=== PATIENT | male | born 1955 | race Caucasian/White ===

== ENCOUNTER 2018-02-09 11:18 | Inpatient (IN) | payer OTHER ==
[~2018-02-09] VITALS: Ht 170.2 cm; Wt 78.5 kg
[~2018-02-09 11:18] MED LIST: ALBUTEROL 3 ML3 ML INH; ALBUTEROL SULFAT3 M1 INH; ALPRAZOLAM0.5 MG PO; DELTASONE20 MG PO; DUONEB 3 MG/3 ML3 ML INH/SOL; GUAIFENESIN-COD10 ML PO; GUAIFENESIN600 MG PO; IPRAT-ALBUT 0.5-3 ML INH; LORATADINE10 M1 PO; MUCINEX DM ER1 EAC1 PO; PREDNISONE 10MG10 M1 PO; PREDNISONE10 M2 PO; PREDNISONE10 MG PO; PREDNISONE5 M1 PO; PROAIR HFA0.09 MG/Ac INH; ROBITUSSIN W/CO10 ML PO; SINGULAIR10 M1 PO; SINGULAIR10 MG PO; SYMBICORT 160/41 PUF INH; TESSALON PERLE100 M1 PO; ZITHROMAX Z-PA250 M1 PO; ZITHROMAX250 M2 PO
[2018-02-09 13:01] LABS: ABSOLUTE BASOPHIL COUNT 0 /CUMM (0.0-0.2); ABSOLUTE EOSINOPHIL COUNT 0.4 /CUMM (0.0-0.7); ABSOLUTE GRANULOCYTE CT 12.3 /CUMM (1.4-6.5); ABSOLUTE LYMPH COUNT 2.2 /CUMM (1.2-3.4); ABSOLUTE MONOCYTE COUNT 1.3 /CUMM (0.10-0.60); BASOPHIL % 0.2 % (0.0-2.0); EOSINOPHIL % 2.4 % (0-5); GRANULOCYTE % 75.5 % (42.2-75.2); HEMATOCRIT 46.3 % (42-52); MEAN CORPUSCULAR HGB 30.9 PG (27.0-31.0); MEAN CORPUSCULAR HGB CONC 34.2 G/DL (33.0-37.0); MEAN CORPUSCULAR VOLUME 90.3 FL (80.0-94.0); MEAN PLATELET VOLUME 7.7 FL (7.4-10.4); PLATELET COUNT 293 /CUMM (130-400); RBC DISTRIBUTION WIDTH 13.2 % (11.5-14.5); RED BLOOD CELL CT 5.13 /CUMM (4.70-6.10); WHITE BLOOD CELL COUNT 16.3 /CUMM (4.8-10.8)
--- NOTE | 2018-02-09 16:22 | ED GENERAL ADULT ---
History of Present Illness General Chief Complaint: General Adult Stated Complaint: "I HAVE A SEVERE RECTAL PROBLEM" Source: patient, family Exam Limitations: no limitations Vital Signs & Intake/Output Vital Signs & Intake/Output Vital Signs Date Time Temp Pulse Resp B/P B/P Pulse O2 O2 Flow FiO2 Mean Ox Delivery Rate 02/09 2121 98.0 02/10 1928 98.1 88 20 104/58 93 Room Air 02/09 1649 93 02/09 1620 101.6 02/09 1537 97 Room Air Room Air 02/09 1408 101.6 105 18 118/73 95 Room Air 02/09 1134 99.9 112 20 116/81 95 Room Air Allergies Coded Allergies: Sulfa (Sulfonamide Antibiotics) (HIVES 02/09/18) amoxicillin (HIVES 02/09/18) clavulanic acid (HIVES 02/09/18) Reconcile Medications Albuterol Sulfate (Proair Hfa) 0.09 MG/Actuation CAROL 2 PUFF INH Q6 ASTHMA ( Reported) Albuterol Sulfate/Ipratropiu (Duoneb) 3 MG/3 ML NEB 1 Vial INH/GINA 4 TIMES/DAY PRN shortness of breath Alprazolam 0.5 MG TAB 1 TAB PO BID PRN DEPRESSION/ANXIETY (Reported) Azithromycin (Zithromax) 250 MG TABLET 1 DP PO AD COPD/BRONCHITIS 2 the first day followed by 1 for days 2-5 Benzonatate (Tessalon Perle) 100 MG CAPSULE 1 CAP PO TID PRN COUGH Budesonide/Formoterol Fumara (Symbicort 160-4.5 Mcg Inhaler) 160 MCG/4.5 MCG PUF 2 PUF INH BID ASTHMA Guaifenesin/Dextromethorphan (Mucinex Dm ER 600-30 MG Tablet) 1 EACH TAB.ER.12H 1 TAB PO BIDP PRN BREATHING PROBLEMS (Reported) Ipratropium/Albuterol Sulfate (Iprat-Albut 0.5-3(2.5) MG/3 Ml) 0.5 MG-3 MG (2.5 MG BASE)/3 ML AMPUL.NEB 3 ML INH Q6HR PRN WHEEZING Ipratropium/Albuterol Sulfate (Iprat-Albut 0.5-3(2.5) MG/3 Ml) 3 ML AMPUL.NEB 1 VIAL INH Q4-6 PRN WHEEZING Loratadine 10 MG TABLET 1 MG PO DAILY PRN ALLERGIES Montelukast Sodium (Singulair) 10 MG TABLET 1 TAB PO AT BEDTIME shortness of breath Prednisone (Deltasone) 20 MG TABLET 3 TAB PO DAILY ASTHMA Prednisone 10 MG TABLET 0 PO DAILY ASTHMA 6 TABS PO DAY 1 5 TABS PO DAY2 4 TABS PO DAY 3 3 TABS PO DAY 4 2 TABS PO DAY 5 1 TAB PO DAY 6 AND 7 Prednisone 10 MG TABLET 1 TAB PO AD ASTHMA DAY1/DAY2 FOUR TABS DAY3/DAY4 THREE TABS DAY5/DAY6 TWO TABS DAY 7 ONE TAB Robitussin AC (Guaifenesin-Codeine Syrup) 200 MG-20 MG/10 ML LIQUID 10 ML PO Q6HR PRN COUGH Robitussin AC (Guaifenesin-Codeine Syrup) 10 ML LIQUID 10 ML PO TID PRN COUGH Triage Note: PT TO ER C/C PAIN X 10 DAYS. STARTED IN LOW ABD AREA. PAIN IS NOW ALSO TO RECTAL AREA, INO KIDNEY AREA, LOW BACK AND INO HIP AREA. PAIN IS CONSTANT SINCE ONSET. HX OF UMBILICAL HERNIA WHICH HAS NOT BEEN REPAIRED. LAST BM YESTERDAY, STATES HAD TO USE A SUPPOSITORY AND VERY LITTLE CAME OUT. LNBM LAST WEEK. STATES HAS DIFFICULTY URINATING AND HAS TO STIMULATE HIS RECTAL AREA IN ORDER TO GET URINE OUT. LAST NORMAL URINARY VOID LAST WEEK (FRIDAY OR FRIDAY). Triage Nurses Notes Reviewed? yes Onset: Abrupt Duration: day(s): (10), constant, continues in ED, getting worse Timing: single episode today Injury Environment: home Severity: moderate, severe Severity Numbers: 10 No Modifying Factors: none Modifying Factors: Worsens With: movement, other (BM). HPI: 62-year-old male history of anxiety depression bronchitis presents for evaluation of perianal and perirectal pain. Patient reports he has had this pain for the past 10 days is getting worse. The pain is located in the area of the rectum. The pain is worse with bowel movements. He states he has an area of swelling that he can feel Right outside of his anal area. He also reports that he has not been having normal bowel movements recently and feels like he is constipated. He states he did have a small bowel movement yesterday. No diarrhea. He also reports his asthma symptoms have been worse than usual with wheezing and coughing. He has had fever at home. He is not taking any pain medicine. Denies trauma to the area. Additionally he reports because of that she's been having difficulty urinating. He was able to urinate only a small amount earlier today. (Eriberto Chavarria) Past History Travel History Traveled to [place] past 21 day No Medical History Any Pertinent Medical History? 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 No (Eriberto Chavarria) Review of Systems Review of Systems Constitutional: Reports: no symptoms. EENTM: Reports: no symptoms. Respiratory: Reports: no symptoms. Cardiovascular: Reports: no symptoms. GI: Reports: see HPI, abdominal pain, constipation. Genitourinary: Reports: no symptoms. Musculoskeletal: Reports: no symptoms. Skin: Reports: no symptoms. Neurological/Psychological: Reports: no symptoms. Hematologic/Endocrine: Reports: no symptoms. Immunologic/Allergic: Reports: no symptoms. All Other Systems: Reviewed and Negative (Eriberto Chavarria) Physical Exam Physical Exam General Appearance: well developed/nourished, no apparent distress, alert, awake Head: atraumatic, normal appearance Eyes: Bilateral: normal appearance, PERRL, EOMI. Ears, Nose, Throat: hearing grossly normal Neck: normal inspection, supple, full range of motion Respiratory: chest non-tender, no respiratory distress, rhonchi, wheezing Cardiovascular: regular rate/rhythm, normal peripheral pulses Peripheral Pulses: 2+ radial (R), 2+ radial (L) Gastrointestinal: soft, non-tender Rectal: normal rectal tone, heme negative stool, THERE IS AN AREA OF INDURATION ABOUT 4CM IN DIAMETER LOCATED JUST TO THE LEFT OF THE ANAL CANAL.. iNDURATION TRACKS UPWARDS TO HIS SACRUM. tHIS AREA IS MILDLY ERYTHEMATOUS. nO DISCHARGE. aREA IS EXQUISITELY TENDER. nO FOCAL FLUCTUANT AREA PALPATED Back: normal inspection, normal range of motion, no vertebral tenderness Extremities: normal inspection, normal range of motion, no edema Neurologic/Psych: no motor/sensory deficits, awake, alert, oriented x 3, normal gait, normal mood/affect Skin: intact, normal color, warm/dry Lymphatic: no anterior cervical alberto Core Measures ACS in differential dx? No CVA/TIA Diagnosis: No Sepsis Present: Yes Sepsis Focused Exam Completed? Yes (Eriberto Chavarria) ED Sepsis Exam Date of Focused Sepsis Exam: 02/09/18 Time of Focused Sepsis Exam: 2043 Sepsis Cardiac Exam: Tachycardia Sepsis Resp Exam: [place] Sepsis Cap Refill Exam: <2 Sec Sepsis Peripheral Pulse Exam: Normal Sepsis Peripheral Pulse Location: Radial Sepsis Skin Color Exam: Normal for Ethnicity Skin Temp/Moisture Exam: Hot/Dry (Eriberto Chavarria) Progress Differential Diagnoses I considered the following diagnoses in my evaluation of the patient: [Perianal abscess, perirectal abscess, fistula, sepsis, pneumonia, bronchitis] Plan of Care: Orders Procedure Date/time Status CBC WITHOUT DIFFERENTIAL 02/11 0600 Active Nothing by Mouth 02/10 B Active Regular Diet 02/09 D Complete TRC EVALUATION (GEN) 02/10 2140 Active Pathway - chart 02/10 2140 Active Code Status 02/09 214 Active Patient Data 02/09 211 Active TRUNK AREA CULTURE 02/09 2103 Active ED Holding Orders 02/09 2058 Active Admit to inpatient 02/09 2058 Active Vital Signs 02/09 2058 Active Code Status 02/09 205 Complete LACTIC ACID 02/09 1956 Complete Add-on Test (ER Only) 02/09 1644 Active CULTURE,URINE 02/09 1607 Active BLOOD CULTURE 02/09 1605 Active URINALYSIS 02/09 1227 Complete TROPONIN LEVEL 02/09 1227 Complete COMPREHENSIVE METABOLIC PANEL 02/09 1227 Complete CBC WITHOUT DIFFERENTIAL 02/09 1227 Complete EKG 02/09 1142 Active VTE Mechanical Prophylaxis 02/09 UNK Active Vital Signs 02/09 UNK Active Intake & Output 02/09 UNK Active Activity/Ambulation 02/09 UNK Active Current Medications Sig/Roni Start time Last Medication Dose Stop Time Status Admin Docusate Sodium 100 MG BID 02/10 0900 AC (Colace) Vancomycin HCl 1,000 MG DAILY 02/10 0900 AC Sodium Chloride 250 ML (Normal Saline 0.9%) Ceftazidime 1,000 MG IQ8 02/10 0000 AC (Fortaz) Morphine Sulfate 2 MG Q4P PRN 02/09 2200 AC (MORPHINE SULFATE) Oxycodone/ 2 TAB Q4P PRN 02/09 2200 AC Acetaminophen (Percocet) Oxycodone/ 1 TAB Q4P PRN 02/09 2200 AC Acetaminophen (Percocet) Acetaminophen 650 MG Q6PRN PRN 02/09 2130 AC (Tylenol) Albuterol Sulfate 2 PUF Q4 PRN 02/09 213 AC (Ventolin) Dextrose/Sodium 1,000 ML .Q8H 02/09 213 AC 02/09 Chloride 2236 (D5-Normal Saline) Ondansetron HCl 4 MG Q6-PRN PRN 02/09 2130 AC (Zofran) Ipratropium [place] 2.5 ML ONCE ONE 02/09 1615 CAN (Atrovent) 02/09 161 Prednisone 60 MG ONCE ONE 02/09 1615 CAN 02/09 1616 Laboratory Tests 02/09/18 1807: Lactic Acid 0.6 L 02/09/18 1656: Lactic Acid Cancelled 02/09/18 1600: Urine Color YEL, Urine Clarity CLEAR, Urine pH 6.0, Ur Specific [place] 1.020, Urine Protein NEG, Urine Ketones TRACE H, Urine Nitrite NEG, Urine Bilirubin NEG, Urine Urobilinogen 0.2, Ur Leukocyte Esterase NEG, Ur Microscopic EXAM NOT REQUIRED, Urine Hemoglobin NEG, Urine Glucose NEG 02/09/18 1252: Anion Gap 9, Estimated GFR > 60, BUN/Creatinine Ratio 13.3, Glucose 87, Calcium 9.3, Total Bilirubin 1.4 H, AST 21, ALT 30, Alkaline Phosphatase 65, Troponin I < 0.01, Total Protein 7.3, Albumin 4.5, Globulin 2.8, Albumin/Globulin Ratio 1.6 , CBC w Diff MAN DIFF ORDERED, RBC 5.13, MCV 90.3, MCH 30.9, MCHC 34.2, RDW 13.2 , MPV 7.7, Gran % 75.5 H, Lymphocytes % 13.7 L, Monocytes % 8.2, Eosinophils % 2.4, Basophils % 0.2, Absolute Granulocytes 12.3 H, Absolute Lymphocytes 2.2, Absolute Monocytes 1.3 H, Absolute Eosinophils 0.4, Absolute Basophils 0, Platelet Estimate ADEQUATE, Normocytic RBCs VERIFIED, Normochromic RBCs VERIFIED Microbiology 02/09 2100 TRUNK: Culture & Sensitivity - RECD 02/09 2100 TRUNK: Gram Stain - RECD 02/09 1750 BLOOD: Blood Culture - RECD 02/09 1607 URINE ROUT: Urine Culture - ORD 02/09 1605 BLOOD: Blood Culture - RECD Patient is here for evaluation of rectal pain. On exam he does have what appears to be a perianal or perirectal abscess. A CT scan will be obtained for further evaluation. Patient has a temp of 101 here and is tachycardic. He also has wheezing on exam. DuoNeb Solu-Medrol was ordered. Patient was given IV Tylenol fluids and Toradol. Blood work shows a white blood cell count of 16,000. Patient has had a persistent fever of [address] scan shows a 1 x 2 x 5 cm perirectal/perianal abscess. Patient HAS met sepsis criteria. Vancomycin and Fortaz was ordered along with blood cultures. Spoke with Dr. Hong from general surgery will have the surgical PA come down and evaluate the patient. Patient be admitted by surgery. He'll require IV antibiotics serial labs antibiotics IV fluids Diagnostic Imaging: Viewed by Me: Radiology Read. Discussed w/RAD: Radiology Read. Radiology Impression: PATIENT: NENA CONWAY PRESENT AGE: 62 PATIENT ACCOUNT NO: [id number] : 56 LOCATION: [facility] ORDERING PHYSICIAN: Eriberto HSIEH SERVICE DATE: 02/09/18 EXAM TYPE: RAD - XRY- PORTABLE CHEST XRAY EXAMINATION: XR PORTABLE CHEST CLINICAL INFORMATION: Cough. Shortness of breath, fever. Presumptive diagnosis of pneumonia, CHF. COMPARISON: No prior chest x-rays, most recent of which is dated 07/15/2017. TECHNIQUE: Portable AP semierect view of the chest was obtained. FINDINGS: The cardiomediastinal silhouette is within normal limits in size. Lungs bilaterally are symmetrically expanded. Minimal chronic linear atelectasis is seen in the left lung base. No focal consolidation, effusion, pulmonary edema or pneumothorax is seen. Nonfusion of the posterior elements in the lower cervical spine is seen. Minimal convex right thoracolumbar scoliosis is seen. Bony structures are otherwise unremarkable. IMPRESSION: Minimal chronic linear atelectasis in the left lung base. No focal pneumonia. No evidence of pulmonary edema. DICTATED BY: Shaista Castillo MD DATE/TIME DICTATED:02/09/181639 ACCOUNTS RECEIVABLE EXECUTIVE:NATALIE DATE/TIME TRANSCRIBED:02/09/181639 CONFIDENTIAL, DO NOT COPY WITHOUT APPROPRIATE AUTHORIZATION. <Electronically signed in Other Vendor System> Initial ED EKG: normal sinus rhythm, RBBB (Eriberto Chavarria) Departure Departure Disposition: STILL A PATIENT Condition: Stable Clinical Impression Primary Impression: Perirectal abscess Secondary Impressions: Sepsis Qualifiers: Sepsis type: sepsis due to unspecified organism Qualified Code: A41.9 - Sepsis, unspecified organism Referrals: Natalya RUDD,Migel Xiao (PCP/Family) Departure Forms: Customer Survey General Discharge Information Admission Note Spoke With: Davion Hong DO Documentation of Exam: Documentation of any treatments & extenuating circumstances including Concerns Regarding Discharge (functional status, medication knowledge or non-compliance, living conditions, etc.) that warrant an admission rather than observation: [ Serial labs IV pain meds IV fluids IV antibiotics surgical consult monitoring of signs] (Eriberto Chavarria) PA/PHOTOGRAPH DEVELOPER Co-Sign Statement Statement: ED Attending supervision documentation- [X] I saw and evaluated the patient. I have also reviewed all the pertinent lab results and diagnostic results. I agree with the findings and the plan of care as documented in the PA's/PHOTOGRAPH DEVELOPER's documentation. [X] I have reviewed the ED Record and agree with the PA's/PHOTOGRAPH DEVELOPER's documentation. [] Additions or exceptions (if any) to the PAs/PHOTOGRAPH DEVELOPER's note and plan are summarized below: [Patient. Admitted for perirectal abscess status post I&D. Patient will need IV fluids, IV antibiotics] (Spenser RUDD,Mk Xiao) Critical Care Note Critical Care Note Critical Care Time: 30-74 min (Eriberto Chavarria)
--- NOTE | 2018-02-09 16:47 | RADIOLOGY REPORT ---
EXAMINATION: XR PORTABLE CHEST CLINICAL INFORMATION: Cough. Shortness of breath, fever. Presumptive diagnosis of pneumonia, CHF. COMPARISON: No prior chest x-rays, most recent of which is dated 07/15/2017. TECHNIQUE: Portable AP semierect view of the chest was obtained. FINDINGS: The cardiomediastinal silhouette is within normal limits in size. Lungs bilaterally are symmetrically expanded. Minimal chronic linear atelectasis is seen in the left lung base. No focal consolidation, effusion, pulmonary edema or pneumothorax is seen. Nonfusion of the posterior elements in the lower cervical spine is seen. Minimal convex right thoracolumbar scoliosis is seen. Bony structures are otherwise unremarkable. IMPRESSION: Minimal chronic linear atelectasis in the left lung base. No focal pneumonia. No evidence of pulmonary edema.
--- NOTE | 2018-02-09 18:13 | CT SCAN REPORT ---
EXAMINATION: CT ABDOMEN AND PELVIS WITH CONTRAST CLINICAL INFORMATION: Perianal abscess. Rectal abscess. Constipation. Abdominal pain. Fever. COMPARISON: CT abdomen and pelvis 12/29/2012. TECHNIQUE: Multidetector volumetric imaging was performed of the abdomen and pelvis following IV administration of 95 mL of Optiray 320 intravenous contrast. Sagittal and coronal reformatted images were obtained on the technologist's workstation. DLP: 447.1 mGy-cm. FINDINGS: LUNG BASES: The visualized lung bases are unremarkable. LIVER, GALLBLADDER, AND BILIARY TREE: The liver is normal in size, shape, and attenuation. No focal hepatic lesion or biliary ductal dilatation is present. The gallbladder is unremarkable with no evidence of radiopaque gallstones, gallbladder wall thickening, or obvious pericholecystic inflammatory changes. PANCREAS: Unremarkable. SPLEEN: Unremarkable. ADRENAL GLANDS: Unremarkable. 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 There is a 1.5 cm cortical cyst at the lower pole cortex of the right kidney. There is no renal or ureteral calculus. There is no hydronephrosis. BLADDER: Unremarkable. GASTROINTESTINAL TRACT: In the low perineum to the left of midline, there is an area of induration and edema consistent with history of a perirectal abscess. There is a fluid collection in the central region of this induration that measures 1.5 x 2.1 x 5.2 cm. There is no intrapelvic edema or inflammation. There is no bowel wall thickening or edema. There is no bowel obstruction. Moderate volume of stool throughout the colon. The appendix is not seen. The small bowel loops are unremarkable. ABDOMINAL WALL: There is an umbilical hernia. The defect of the wall measures 2 cm transverse. The herniated fat pocket measures 2 x 4 x 2.5 cm. There is subtle stranding in the herniated fat pocket as well as a small region of stranding in the immediate adjacent fat in the anterior mid abdomen related to the herniation, sagittal image 60. LYMPH NODES: Normal. VASCULAR: Unremarkable. PELVIC VISCERA: Unremarkable. OSSEOUS STRUCTURES: Unremarkable. IMPRESSION: 1. There is induration and edema with an associated small abscess in the low perineum just to left of midline adjacent to the anal verge. 2. Umbilical hernia with mild edema in the mesenteric fat herniated through the umbilical defect and the adjacent mesenteric fat just deep to the hernia.
--- NOTE | 2018-02-09 22:20 | History & Physical Pre-Op ---
See Addendum General Information and HPI History of Present Illness: 62m presents to the ED with 2week hx worsening perirectal pain, now with fevers up to 101 in the ED. Pain began 2 weeks ago and has slowly progressed. No history of anaorectal disease or GI diagnoses. Has been constipated over last few weeks, no account of specific injury from passing hard stool or any other trauma. No hx fistulas/fissures/hemorrhoids/melena/brbpr. fevers/chills today/ last night with worsening pain, so rpesents to ED. Allergies/Medications Allergies: Coded Allergies: Sulfa (Sulfonamide Antibiotics) (HIVES 02/09/18) amoxicillin (HIVES 02/09/18) clavulanic acid (HIVES 02/09/18) Home Med list Albuterol Sulfate (Proair Hfa) 0.09 MG/Actuation CAROL 2 PUFF INH Q6 ASTHMA ( Reported) Albuterol Sulfate/Ipratropiu (Duoneb) 3 MG/3 ML NEB 1 Vial INH/GINA 4 TIMES/DAY PRN shortness of breath Alprazolam 0.5 MG TAB 1 TAB PO BID PRN DEPRESSION/ANXIETY (Reported) Azithromycin (Zithromax) 250 MG TABLET 1 DP PO AD COPD/BRONCHITIS 2 the first day followed by 1 for days 2-5 Benzonatate (Tessalon Perle) 100 MG CAPSULE 1 CAP PO TID PRN COUGH Budesonide/Formoterol Fumara (Symbicort 160-4.5 Mcg Inhaler) 160 MCG/4.5 MCG PUF 2 PUF INH BID ASTHMA Guaifenesin/Dextromethorphan (Mucinex Dm ER 600-30 MG Tablet) 1 EACH TAB.ER.12H 1 TAB PO BIDP PRN BREATHING PROBLEMS (Reported) Ipratropium/Albuterol Sulfate (Iprat-Albut 0.5-3(2.5) MG/3 Ml) 0.5 MG-3 MG (2.5 MG BASE)/3 ML AMPUL.NEB 3 ML INH Q6HR PRN WHEEZING Ipratropium/Albuterol Sulfate (Iprat-Albut 0.5-3(2.5) MG/3 Ml) 3 ML AMPUL.NEB 1 VIAL INH Q4-6 PRN WHEEZING Loratadine 10 MG TABLET 1 MG PO DAILY PRN ALLERGIES Montelukast Sodium (Singulair) 10 MG TABLET 1 TAB PO AT BEDTIME shortness of breath Prednisone (Deltasone) 20 MG TABLET 3 TAB PO DAILY ASTHMA Prednisone 10 MG TABLET 0 PO DAILY ASTHMA 6 TABS PO DAY 1 5 TABS PO DAY2 4 TABS PO DAY 3 3 TABS PO DAY 4 2 TABS PO DAY 5 1 TAB PO DAY 6 AND 7 Prednisone 10 MG TABLET 1 TAB PO AD ASTHMA DAY1/DAY2 FOUR TABS DAY3/DAY4 THREE TABS DAY5/DAY6 TWO TABS DAY 7 ONE TAB Robitussin AC (Guaifenesin-Codeine Syrup) 200 MG-20 MG/10 ML LIQUID 10 ML PO Q6HR PRN COUGH Robitussin AC (Guaifenesin-Codeine Syrup) 10 ML LIQUID 10 ML PO TID PRN COUGH Past History Medical History Neurological: migraine EENT: allergies (seasonal) Cardiovascular: NONE Respiratory: asthma, bronchitis Hepatic: NONE Renal: nephrolithiasis Musculoskeletal: chronic back pain Psychiatric: anxiety, depression Endocrine: NONE Blood Disorders: NONE Cancer(s): 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 spouse Services at Home None Smoking Status: Never Smoked ETOH Use: occasional use Illicit Drug Use: denies illicit drug use Functional Ability ADLs Independent: dressing, eating, toileting, bathing. Ambulation: independent IADLs Independent: shopping, housework, finances, food prep, telephone, transportation , medication admin. Exam & Diagnostic Data Last 24 Hrs of Vital Signs/I&O Vital Signs Date Time Temp Pulse Resp B/P B/P Pulse O2 O2 Flow FiO2 Mean Ox Delivery Rate 02/09 2121 98.0 02/09 1928 98.1 88 20 104/58 93 Room Air 02/09 1649 93 02/09 1620 101.6 02/09 1537 97 Room Air Room Air 02/09 1408 101.6 105 18 118/73 95 Room Air 02/09 1134 99.9 112 20 116/81 95 Room Air Intake & Output 02/09 1600 02/09 0800 02/09 0000 Intake Total Output Total 350 Balance -350 Output, Urine 350 Patient 180 lb Weight Weight Reported by Patient Measurement Method Physical Exam: gen- nad [id number] pulm-ctab no wheeze abd- soft nt anorectal- indurated L to anal verge, very ttp, skin closed. PATRICIA with significant pain. multiple nonthrombosed skintags externally. fluctuant, indurated most posterior to anal verge. ext- calves soft nt PERIANAL ABSCESS I&D: performed at bedside. skin cleansed- 8cc 1%lido injected, area probed w needle to localized collection, incision made, tissue spread/probed, approx 10cc purulent material expressed. cleansed w NS, clean dry dressing applied. culture sent. pt tolerated well. Last 24 Hrs of Labs/Je: Laboratory Tests 02/09/18 1807: Lactic Acid 0.6 L 02/09/18 1656: Lactic Acid Cancelled 02/09/18 1600: Urine Color YEL, Urine Clarity CLEAR, Urine pH 6.0, Ur Specific [place] 1.020, Urine Protein NEG, Urine Ketones TRACE H, Urine Nitrite NEG, Urine Bilirubin NEG, Urine Urobilinogen 0.2, Ur Leukocyte Esterase NEG, Ur Microscopic EXAM NOT REQUIRED, Urine Hemoglobin NEG, Urine Glucose NEG 02/09/18 1252: Anion Gap 9, Estimated GFR > 60, BUN/Creatinine Ratio 13.3, Glucose 87, Calcium 9.3, Total Bilirubin 1.4 H, AST 21, ALT 30, Alkaline Phosphatase 65, Troponin I < 0.01, Total Protein 7.3, Albumin 4.5, Globulin 2.8, Albumin/Globulin Ratio 1.6 , CBC w Diff MAN DIFF ORDERED, RBC 5.13, MCV 90.3, MCH 30.9, MCHC 34.2, RDW 13.2 , MPV 7.7, Gran % 75.5 H, Lymphocytes % 13.7 L, Monocytes % 8.2, Eosinophils % 2.4, Basophils % 0.2, Absolute Granulocytes 12.3 H, Absolute Lymphocytes 2.2, Absolute Monocytes 1.3 H, Absolute Eosinophils 0.4, Absolute Basophils 0, Platelet Estimate ADEQUATE, Normocytic RBCs VERIFIED, Normochromic RBCs VERIFIED Microbiology 02/09 2100 TRUNK: Culture & Sensitivity - RECD 02/09 2100 TRUNK: Gram Stain - RECD 02/09 1750 BLOOD: Blood Culture - RECD 02/09 1607 URINE ROUT: Urine Culture - ORD 02/09 1605 BLOOD: Blood Culture - RECD Assessment/Plan Assessment/Plan: A- 62yoM with perianal abscess with fever and leukocytosis, sp beside I&D, stable P- admit as inpt prn pain meds stool softeners iv abx am labs tylenol prn home meds reasses wound in am d/w dr. holley As Ranked By This Provider Problem List: 1. Perirectal abscess 2. Asthma
[2018-02-10] MEDS ORDERED: MONTELUKAST SOD10 M1 PO (02:11)
[2018-02-10 02:22] VITALS: BP 118/86
[2018-02-10 06:50] VITALS: BP 118/80
--- NOTE | 2018-02-10 09:29 | PN- General Surgery ---
Subjective Subjective: Symptoms improving overnight post bedside I&D. Currently without pain, fever and flu like symptoms have resolved. Passing flatus, no bm yet. No complaints of chest pain or shortness of breath. Has been npo, feels that appetite has returned. Objective Vital Signs and I&Os Vital Signs Date Time Temp Pulse Resp B/P B/P Pulse O2 O2 Flow FiO2 Mean Ox Delivery Rate 02/10 0650 97.9 87 20 118/80 95 Room Air 02/10 0231 Room Air 02/10 0222 97.7 93 22 118/86 94 Room Air 02/10 0151 97.5 83 20 96/63 94 Room Air 02/09 2121 98.0 02/09 1928 98.1 88 20 104/58 93 Room Air 02/09 1649 93 02/09 1620 101.6 02/09 1537 97 Room Air Room Air 02/09 1408 101.6 105 18 118/73 95 Room Air 02/09 1134 99.9 112 20 116/81 95 Room Air Intake & Output 02/10 1600 02/10 0800 02/10 0000 02/09 1600 02/09 0800 02/09 0000 Intake Total 650 2100 Output Total 350 Balance 650 2100 -350 Intake, IV 650 2100 Output, Urine 350 Patient 173 lb 180 lb Weight Weight Bed scale Reported by Patient Measurement Method Physical Exam: General: Alert and oriented x3, no acute distress Cardiac: RRR, s1s2 Pulm: Non-labored respiratory effort Abd: Non-tender, non-distended Surgical site: Left side, jaimee-anal area. No induration, minimal erythema. Some scant blood on dressing, no purulence expressed on current exam, periincisional area soft. Extremties: Moves all extremities, distal sensation grossly intact. Bilateral calves soft/non-tender. Assessment/Plan Assessment/Plan This is a 62 year old male, hospital day 1, s/p bedside I&D of jaimee-anal abscess. Admitted to hospital for administration of iv antibiotics and pain regimen as well as close monitoring of cbc and vital signs as pt was febrile with leukocytosis pre procedure, also frequent wound checks. Wound irrigated this am, dressing changed. -Wound looks improved today, will likely hold off on surgical intervention, Dr. Hong to see shortly -NPO for now, will likely feed this afternoon -Continue iv ceftaz and vancomycin -Continue dry dressing -OOB okay Will discuss plan of care with Dr. Hong Core Measures Venous Thromboembolism VTE Risk Factors Surgery No Mechanical VTE Prophylaxis d/t N/A MechProphylax Ordered No VTE Pharm Prophylaxis d/t NA PharmProphylax ordered
[2018-02-10 10:54] LABS: ABSOLUTE BASOPHIL COUNT 0.1 /CUMM (0.0-0.2); ABSOLUTE EOSINOPHIL COUNT 0 /CUMM (0.0-0.7); ABSOLUTE GRANULOCYTE CT 13.4 /CUMM (1.4-6.5); ABSOLUTE LYMPH COUNT 1.8 /CUMM (1.2-3.4); ABSOLUTE MONOCYTE COUNT 0.7 /CUMM (0.10-0.60); BASOPHIL % 0.4 % (0.0-2.0); EOSINOPHIL % 0.1 % (0-5); GRANULOCYTE % 83.7 % (42.2-75.2); MEAN CORPUSCULAR HGB 31.1 PG (27.0-31.0); MEAN CORPUSCULAR HGB CONC 34.5 G/DL (33.0-37.0); MEAN CORPUSCULAR VOLUME 90.1 FL (80.0-94.0); MEAN PLATELET VOLUME 8.3 FL (7.4-10.4); PLATELET COUNT 241 /CUMM (130-400); RBC DISTRIBUTION WIDTH 13.7 % (11.5-14.5); RED BLOOD CELL CT 4.31 /CUMM (4.70-6.10)
[2018-02-10 11:04] LABS: HEMATOCRIT 38.9 % (42-52)
[2018-02-10 14:27] VITALS: BP 125/80
--- NOTE | 2018-02-10 16:13 | Patient Discharge Instructions ---
Discharge Instructions General Discharge Information You were seen/treated for: Jaimee-anal abscess You had these procedures: Incision and drainage of abscess with administration of intravenous antibiotics Watch for these problems: Worsening pain to rectum Worsening redness, warmth or drainage from jaimee-anal area Inability to pass gas or move bowels Fever, flu like symptoms Other wound care: -Daily dry dressing changes as needed -sitz baths 2-3 kacy a day for 20min at a time -avoid constipation. Take stool softeners as needed Special Instructions: Recommend follow up with colorectal surgeon Dr. Nhan rAtis Diet Continue normal diet: Yes Activity Full Activity/No Limits: No Activity Self Limited: Yes Acute Coronary Syndrome Inclusion Criteria At DC or during hospital stay patient has or had the following: ACS DIAGNOSIS No Discharge Core Measures Meds if any: Prescribed or Continued at Discharge Meds if any: NOT Prescribed or Continued at Discharge Congestive Heart Failure Inclusion Criteria At DC or during hospital stay patient has or had the following: CHF DIAGNOSIS No Discharge Core Measures Meds if any: Prescribed or Continued at Discharge Meds if any: NOT Prescribed or Continued at Discharge Cerebrovascular accident Inclusion Criteria At DC or during hospital stay patient has or had the following: CVA/TIA Diagnosis No Discharge Core Measures Meds if any: Prescribed or Continued at Discharge Meds if any: NOT Prescribed or Continued at Discharge Venous thromboembolism Inclusion Criteria VTE Diagnosis No VTE Type NONE VTE Confirmed by (Test) NONE Discharge Core Measures - Per Current guidelines, there needs to be overlap - treatment for the first 5 days of Warfarin therapy. - If discharged on Warfarin prior to 5 days of - overlap therapy, the patient will need to be - assessed for post discharge needs including - *Post discharge parental anticoagulation - *Warfarin and/or parental anticoagulation education - *Follow up date to check INR post discharge At least 5 days overlap therapy as Inpatient No Meds if any: Prescribed or Continued at Discharge Note: Overlap Therapy is Warfarin and Anticoagulant Meds if any: NOT Prescribed or Continued at Discharge
--- NOTE | 2018-02-10 16:18 | Surgical Discharge Summary ---
Visit Information Visit Dates Admission Date: 02/09/18 History of Present Illness Chief Complaint: Rectal pain related to abscess Medical History Blood Transfusion Hx: No Neurological: migraine EENT: allergies (seasonal) Cardiovascular: NONE Respiratory: asthma, bronchitis Hepatic: NONE Renal: nephrolithiasis Musculoskeletal: chronic back pain Psychiatric: anxiety, depression Endocrine: NONE Blood Disorders: NONE Cancer(s): NONE [employer]/Reproductive: NONE History of MRSA: No History of VRE: No History of CDIFF: No Isolation History: Standard Influenza Vaccine: 02/23/15 Surgical History Pertinent Surgical History: none Family History Relations & Conditions If Any: MOTHER FH: diabetes mellitus Psychosocial History Where Do You Live? Home Who Do You Live With? Spouse Services at Home: None What is Your Primary Language? Nauruan ETOH Use: occasional use Review of Systems: See H&P Hospital Course Course Attending Physician: Davion Hong DO Primary Care Physician: Migel Hoang MD Hospital Course: Alexis was admitted to the hospital on 02/09/2018 with complaints of worsening vy -anal pain along with fever and flu like illness. A bedside incision and drainage was done, the result of which was approximately 10 cc of purulent drainage expressed. Cultures were sent. The patient was placed on IV antibiotics. At the time of hospital discharge, his vital signs were stable and within normal limits, he was afebrile, leukocytosis improved, pain improved. Allergies: Coded Allergies: Sulfa (Sulfonamide Antibiotics) (HIVES 02/09/18) amoxicillin (HIVES 02/09/18) clavulanic acid (HIVES 02/09/18) Significant Procedures: bedside incision and drainage of perirectal abscess Disposition Summary Disposition Principal Diagnosis: Vy-anal abscess Additional Diagnosis: sp bedside I&D Discharge Disposition: home or self care Discharge Instructions General Discharge Information Code Status: Full Code Patient's Diet: Regular Patient's Activity: As tolerated Follow-Up Instructions/Appts: Follow up with Dr. Hong in one week from hospitalization Recommend follow up with colorectal surgeon for further management, recommend Dr. Nhan Artis Medications at Discharge Discharge Medications: Stop taking the following medications: Robitussin AC (Guaifenesin-Codeine Syrup) 200 MG-20 MG/10 ML LIQUID ORAL Q6HR as needed for COUGH Qty = 120 Guaifenesin/Dextromethorphan (Mucinex Dm ER 600-30 MG Tablet) 1 EACH TAB.ER.12H ORAL 2 x Daily as needed as needed for BREATHING PROBLEMS Prednisone (Prednisone) 10 MG TABLET ORAL As Directed Qty = 21 Benzonatate (Tessalon Perle) 100 MG CAPSULE ORAL THREE TIMES DAILY as needed for COUGH Qty = 21 Robitussin AC (Guaifenesin-Codeine Syrup) 10 ML LIQUID ORAL THREE TIMES DAILY as needed for COUGH Days = 7 Prednisone (Deltasone) 20 MG TABLET ORAL DAILY Days = 5 Azithromycin (Zithromax) 250 MG TABLET ORAL As Directed Qty = 6 Prednisone (Prednisone) 10 MG TABLET ORAL DAILY Qty = 22 Continue taking these medications: Albuterol Sulfate (Proair Hfa) 0.09 MG/Actuation CAROL 2 PUFF Inhale through mouth EVERY SIX HOURS Comments: NOT GIVEN IN HOSPITAL Albuterol Sulfate/Ipratropiu (Duoneb) 3 MG/3 ML NEB 1 Vial Inhale Solution 4 TIMES A DAY as needed for shortness of breath Qty = 360 Comments: Last Taken: 09/16/15 Time: 9:00 AM Budesonide/Formoterol Fumara (Symbicort 160-4.5 Mcg Inhaler) 160 MCG/4.5 MCG PUF 2 Puff Inhale through mouth TWICE DAILY Days = 30 Comments: Last Taken: 09/16/15 Time: 10:00 AM Alprazolam (Alprazolam) 0.5 MG TAB 1 Tablet ORAL TWICE DAILY as needed for DEPRESSION/ANXIETY Qty = 60 Comments: NOT GIVEN IN HOSPITAL Loratadine (Loratadine) 10 MG TABLET 1 Milligram ORAL DAILY as needed for ALLERGIES Qty = 30 Comments: Last Taken: 09/16/15 Time: 10:00 AM Montelukast Sodium (Singulair) 10 MG TABLET 1 Tablet ORAL AT BEDTIME Qty = 30 Comments: Last Taken: 09/15/15 Time: 9:30 PM Ipratropium/Albuterol Sulfate (Iprat-Albut 0.5-3(2.5) MG/3 Ml) 3 ML AMPUL.NEB 1 VIAL Inhale through mouth EVERY 4-6 HOURS as needed for WHEEZING Qty = 100 Ipratropium/Albuterol Sulfate (Iprat-Albut 0.5-3(2.5) MG/3 Ml) 0.5 MG-3 MG (2.5 MG BASE)/3 ML AMPUL.NEB 3 Milliliters Inhale through mouth Q6HR as needed for WHEEZING Qty = 1 Montelukast Sodium (Montelukast Sodium) 10 MG TABLET 1 Tablet ORAL DAILY Qty = 30 Start taking the following new medications: Metronidazole (Flagyl) 250 MG TABLET 500 Milligram ORAL EVERY 12 HOURS Qty = 20 No Refills Ciprofloxacin HCl (Cipro) 500 MG TABLET 1 Tablet ORAL TWICE DAILY Qty = 20 No Refills Oxycodone HCl/Acetaminophen (Percocet 5-325 MG Tablet) 5 MG-325 MG TABLET 1 Tablet ORAL EVERY 4-6 HOURS as needed for postop pain Qty = 18 No Refills
[2018-02-10 22:16] VITALS: BP 120/80
[2018-02-11 06:43] VITALS: BP 100/66
--- NOTE | 2018-02-11 07:39 | PN- General Surgery ---
Subjective Subjective: feeling much better, perianal pain improved. +bmx2, no difficulties. no issues voiding. no fevers. oob, ambulating. no cp/sob/n/v. poornima diet Objective Vital Signs and I&Os Vital Signs Date Time Temp Pulse Resp B/P B/P Pulse O2 O2 Flow FiO2 Mean Ox Delivery Rate 02/11 0658 94 Room Air 02/11 0643 98.2 84 20 100/66 92 Room Air 02/10 2216 98.7 95 18 120/80 94 Room Air 02/10 1905 93 Room Air 02/10 1427 98.5 78 20 125/80 96 Room Air 02/10 1329 Room Air 02/10 1310 92 Room Air 02/10 0800 Room Air Intake & Output 02/11 0800 02/11 0000 02/10 1600 02/10 0800 02/10 0000 02/09 1600 Intake Total 250 1100 400 086 4485 Output Total 300 350 Balance 250 1100 624 087 9936 -350 Intake, IV 10 071 546 6504 Intake, Oral 240 1100 240 Number 1 Bowel Movements Output, Urine 300 350 Patient 173 lb 180 lb Weight Weight Bed scale Reported by Patient Measurement Method Physical Exam: gen- nad card-s1s2 pulm- ctab no wheeze abd- soft nt anorectal- no induration or erythema, ttp at posterior anal verge at incision, no flutuance, skin probed w qtip and cleansed w ns, no purulence, minimal serosang on dressing. ext- calves soft nt bl CBC- pending Cx- GNR prelim Results Last 48 Hours of Labs: Laboratory Tests 02/10 02/09 02/09 1010 1807 1656 Chemistry Lactic Acid (0.7 - 2.1 mmol/L) 0.6 L Cancelled Hematology CBC w Diff NO MAN DIFF REQ WBC (4.8 - 10.8 /CUMM) 16.0 H RBC (4.70 - 6.10 /CUMM) 4.31 L Hgb (14.0 - 18.0 G/DL) 13.4 L Hct (42 - 52 %) 38.9 L MCV (80.0 - 94.0 FL) 90.1 MCH (27.0 - 31.0 PG) 31.1 H MCHC (33.0 - 37.0 G/DL) 34.5 RDW (11.5 - 14.5 %) 13.7 Plt Count (130 - 400 /CUMM) 241 MPV (7.4 - 10.4 FL) 8.3 Gran % (42.2 - 75.2 %) 83.7 H Lymphocytes % (20.5 - 51.1 %) 11.1 L Monocytes % (1.7 - 9.3 %) 4.7 Eosinophils % (0 - 5 %) 0.1 Basophils % (0.0 - 2.0 %) 0.4 Absolute Granulocytes (1.4 - 6.5 /CUMM) 13.4 H Absolute Lymphocytes (1.2 - 3.4 /CUMM) 1.8 Absolute Monocytes (0.10 - 0.60 /CUMM) 0.7 H Absolute Eosinophils (0.0 - 0.7 /CUMM) 0 Absolute Basophils (0.0 - 0.2 /CUMM) 0.1 02/09 02/09 1600 1252 Chemistry Sodium (137 - 145 mmol/L) 138 Potassium (3.5 - 5.1 mmol/L) 4.6 Chloride (98 - 107 mmol/L) 101 Carbon Dioxide (22 - 30 mmol/L) 28 Anion Gap (5 - 16) 9 BUN (9 - 20 mg/dL) 12 Creatinine (0.7 - 1.2 mg/dL) 0.9 Estimated GFR (>60 ml/min) > 60 BUN/Creatinine Ratio (7 - 25 %) 13.3 Glucose (65 - 99 mg/dL) 87 Calcium (8.4 - 10.2 mg/dL) 9.3 Total Bilirubin (0.2 - 1.3 mg/dL) 1.4 H AST (17 - 59 U/L) 21 ALT (21 - 72 U/L) 30 Alkaline Phosphatase (< 127 U/L) 65 Troponin I (<0.11 ng/ml) < 0.01 Total Protein (6.3 - 8.2 g/dL) 7.3 Albumin (3.5 - 5.0 g/dL) 4.5 Globulin (1.9 - 4.2 gm/dL) 2.8 Albumin/Globulin Ratio (1.1 - 2.2 %) 1.6 Hematology CBC w Diff MAN DIFF ORDERED WBC (4.8 - 10.8 /CUMM) 16.3 H RBC (4.70 - 6.10 /CUMM) 5.13 Hgb (14.0 - 18.0 G/DL) 15.8 Hct (42 - 52 %) 46.3 MCV (80.0 - 94.0 FL) 90.3 MCH (27.0 - 31.0 PG) 30.9 MCHC (33.0 - 37.0 G/DL) 34.2 RDW (11.5 - 14.5 %) 13.2 Plt Count (130 - 400 /CUMM) 293 MPV (7.4 - 10.4 FL) 7.7 Gran % (42.2 - 75.2 %) 75.5 H Lymphocytes % (20.5 - 51.1 %) 13.7 L Monocytes % (1.7 - 9.3 %) 8.2 Eosinophils % (0 - 5 %) 2.4 Basophils % (0.0 - 2.0 %) 0.2 Absolute Granulocytes (1.4 - 6.5 /CUMM) 12.3 H Absolute Lymphocytes (1.2 - 3.4 /CUMM) 2.2 Absolute Monocytes (0.10 - 0.60 /CUMM) 1.3 H Absolute Eosinophils (0.0 - 0.7 /CUMM) 0.4 Absolute Basophils (0.0 - 0.2 /CUMM) 0 Platelet Estimate (ADEQUATE) ADEQUATE Normocytic RBCs VERIFIED Normochromic RBCs VERIFIED Urines Urine Color (YEL,AMB,STR) YEL Urine Clarity (CLEAR) CLEAR Urine pH (5.0 - 8.0) 6.0 Ur Specific [place] (1.001 - 1.035) 1.020 Urine Protein (NEG,<30 MG/DL) NEG Urine Ketones (NEG) TRACE H Urine Nitrite (NEG) NEG Urine Bilirubin (NEG) NEG Urine Urobilinogen (0.1 - 1.0 EU/dl) 0.2 Ur Leukocyte Esterase (NEG) NEG Ur Microscopic EXAM NOT REQUIRED Urine Hemoglobin (NEG) NEG Urine Glucose (N MG/DL) NEG Assessment/Plan Assessment/Plan A- HD2 sp bedside I&D of perianal abscess, improved. P- fu cultures- GNR prelim fu cbc cont miguel angel/flag home meds prn pain meds reg diet oob, ambulate, hepsq will dw attending dc planning Core Measures Venous Thromboembolism VTE Risk Factors Surgery No Mechanical VTE Prophylaxis d/t N/A MechProphylax Ordered No VTE Pharm Prophylaxis d/t NA PharmProphylax ordered
[2018-02-11] MEDS ORDERED: CIPRO500 M1 PO (08:42)
[2018-02-11] MEDS ORDERED: PERCOCET 5-3251 EACH PO (08:42)
[2018-02-11] MEDS ORDERED: FLAGYL250 M1 PO (08:42)
[2018-02-11 09:16] LABS: ABSOLUTE BASOPHIL COUNT 0.1 /CUMM (0.0-0.2); ABSOLUTE EOSINOPHIL COUNT 0.3 /CUMM (0.0-0.7); ABSOLUTE GRANULOCYTE CT 6.8 /CUMM (1.4-6.5); ABSOLUTE LYMPH COUNT 2.3 /CUMM (1.2-3.4); ABSOLUTE MONOCYTE COUNT 0.6 /CUMM (0.10-0.60); BASOPHIL % 0.7 % (0.0-2.0); EOSINOPHIL % 3.2 % (0-5); GRANULOCYTE % 67.1 % (42.2-75.2); HEMATOCRIT 37.7 % (42-52); MEAN CORPUSCULAR HGB CONC 34.4 G/DL (33.0-37.0); MEAN PLATELET VOLUME 8.2 FL (7.4-10.4); PLATELET COUNT 254 /CUMM (130-400); RBC DISTRIBUTION WIDTH 13.5 % (11.5-14.5); RED BLOOD CELL CT 4.18 /CUMM (4.70-6.10); WHITE BLOOD CELL COUNT 10.1 /CUMM (4.8-10.8)
== END 2018-02-11 14:39 | DRG 395 ==
LOC: ERH 11:18 → 2NA 20:58 → ERHI 20:58 → ENRESERV 02-10 00:59 → 2NA 02-10 02:13 → ENPENDDIS 02-11 11:33 → ENTRNSPT 02-11 14:24 → 2NA 02-11 14:39 → EDTRNSPT 02-11 14:50 → EDTRNSPTSTS 02-11 14:50 → CMPTRNSPT 02-11 14:57
PROVIDERS: Nurse Practitioner; Physician Assistant Medical; Physician Assistant Surgical
PROC: 0J9B3ZZ Drainage of Perineum Subcutaneous Tissue and Fascia, Percutaneous Approach (ICD-10-PCS; principal; 2018-02-09)
DX: K61.2 Anorectal abscess (principal); J45.909 Unspecified asthma, uncomplicated; Z88.1 Allergy status to other antibiotic agents; Z88.2 Allergy status to sulfonamides; Z79.51 Long term (current) use of inhaled steroids; Z79.52 Long term (current) use of systemic steroids; F41.9 Anxiety disorder, unspecified; F32.9 Major depressive disorder, single episode, unspecified
CPT/HCPCS: 2NAP; ERO; 36592; 71045; 74177; 81003; 87040; 87070; 87086; 93005; 93010; 96361; 96365; 96375; 99291; J0131; J0696; J0713; J1644; J1885; J2001; J2930; J3370; J3490; J7040